=== PATIENT | female | born 1970 | race Caucasian/White ===

== ENCOUNTER 2016-12-31 08:56 | Emergency (ER) | payer OTHER ==
[~2016-12-31] VITALS: Ht 167.6 cm; Wt 72.0 kg
[~2016-12-31 08:56] MED LIST: ARMO60TA PO; EPIP0.3I IM; FLUO40CA PO; FLUT50SP EACH NARE; LORA-392 PO; OMEP40CA2 PO
[2016-12-31 09:10] VITALS: BP 144/90; PULSE 83; RESP 16; TEMP 97.8; O2SAT 99
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
[2016-12-31] MEDS ORDERED: ACETAMINOPHEN 325 MG TAB PO ONE (09:45)
[2016-12-31 10:06] LABS: POTASSIUM 4.2 MEQ/L (3.5-5.1)
[2016-12-31 10:10] LABS: BICARBONATE 25.9 MEQ/L (21.0-32.0)
[2016-12-31 10:15] VITALS: BP 119/75; PULSE 74; RESP 16; O2SAT 100
--- NOTE | 2016-12-31 10:40 | RADRPT ---
EXAM DATE/TIME: 12/31/2016 10:10 [place] COMPARISON: No previous studies available for comparison. INDICATIONS : Headache. Right visual disturbance. RADIATION DOSE: 59.84 CTDIvol (mGy) MEDICAL HISTORY : None SURGICAL HISTORY : Thyroidectomy. ENCOUNTER: Initial ACUITY: 1 day PAIN SCALE: 3/10 LOCATION: cranial TECHNIQUE: Multiple contiguous axial images were obtained of the head. Using automated exposure control and adj ustment of the mA and/or kV according to patient size, radiation dose was kept as low as reasonably a chievable to obtain optimal diagnostic quality images. DICOM format image data is available electro nically for review and comparison. FINDINGS: CEREBRUM: The ventricles are normal. No evidence of midline shift, mass lesion, hemorrhage or acute infarction . No extra-axial fluid collections are seen. POSTERIOR FOSSA: The cerebellum and brainstem demonstrate no abnormality. The 4th ventricle is midline. The cerebell opontine angle is unremarkable. EXTRACRANIAL: Visualized sinuses are clear. SKULL: The calvaria is intact. No evidence of skull fracture. CONCLUSION: Negative noncontrast head CT. No acute finding is identified. Carlito Cervantes MD on December 31, 2016 at 10:36 Board Certified Radiologist. This report was verified electronically.
[2016-12-31 11:05] LABS: AUTOMATED NEUTROPHIL # 2.2 TH/MM3 (1.8-7.7); BASOPHIL % 0.8 % (0.0-2.0); EOSINOPHIL # 0.1 TH/MM3 (0-0.4); EOSINOPHIL % 3.2 % (0.0-4.0); HEMATOCRIT 39.1 % (35.0-46.0); HEMO FLAGS DIFF FINAL; LYMPH % 38.3 % (9.0-44.0); LYMPHOCYTE # 1.7 TH/MM3 (1.0-4.8); MEAN CELL VOLUME 92.3 FL (80.0-100.0); MEAN CORPUSCULAR HEMOGLOBIN 31.9 PG (27.0-34.0); MEAN CORPUSCULAR HGB CONC 34.5 % (32.0-36.0); MONO % 5.8 % (0.0-8.0); NEUT % 51.9 % (16.0-70.0); PLATELET COUNT 240 TH/MM3 (150-450); RED BLOOD COUNT 4.24 MIL/MM3 (4.00-5.30); RED CELL DISTRIBUTION WIDTH 12.5 % (11.6-17.2); WHITE BLOOD COUNT 4.3 TH/MM3 (4.0-11.0)
[2016-12-31 11:11] VITALS: RESP 16
[2016-12-31 12:00] VITALS: BP 98/72
== END 2016-12-31 12:16 | disposition home or self-care (01) ==
LOC: PHED 08:56
DX: H93.8X3 Other specified disorders of ear, bilateral (principal); H53.8 Other visual disturbances; E05.00 Thyrotoxicosis with diffuse goiter without thyrotoxic crisis or storm
CPT/HCPCS: 70450; 80048; 84436; 84443; 84703; 85025; 99285

== ENCOUNTER → 2017-02-21 | Outpatient (CLI) | payer OTHER ==
[~2017-02-21] VITALS: Ht 167.6 cm; Wt 72.5 kg
[~2017-02-21] MED LIST changes: +CHLORHEXIDINE GLUCONATE 2 % 1 PACK (2 CLOTHS) TOPICAL PRN; +DEXAMETHASONE SOD PHOS 4 MG/ML VIAL IV ONE; +EPIN1INJ17 IM; -EPIP0.3I IM; +INSULIN HUMAN REGULAR 1,000 UNITS/10 ML VIAL SQ PRN; +LACTATED RINGER'S 1000 ML IV PRN; +METOPROLOL TARTRATE 25 MG TAB PO PRN; -OMEP40CA2 PO; +ONDANSETRON HCL 4 MG/2 ML VIAL IV PUSH ONE; +POVIDONE IODINE 5% (ANTISEPSIS KIT) 4 APPLICATIONS EACH NARE PRN; +PROPOFOL 200 MG/20 ML AMP IV ONE; +SODIUM CHLORID 0.9% 500 ML IV PRN
--- NOTE | 2017-02-21 09:06 | GIPROC ---
[facility] [address] [facility]. [facility], [address] EGD PROCEDURE REPORT EXAM DATE: 02/21/2017 PATIENT NAME: Cindy Leone MR #: [id number] BIRTHDATE: 1970 ATTENDING: Tyron Perez MD ORDER #: [id number] CELL BIOLOGY SCIENTIST: Leonard Adams and Viktor Hutton STATUS: outpatient INDICATIONS: The patient is a 47 yr old female here for an EGD due to epigastric pain/tenderness, early satiety-no better with a trial of a gastroparesis diet-and diarrhea. PROCEDURE PERFORMED: EGD w/ biopsy MEDICATIONS: Per Anesthesia. TOPICAL ANESTHETIC: none CONSENT: The patient understands the risks and benefits of the procedure and understands that these risks include, but are not limited to: sedation, allergic reaction, infection, perforation and/or bleeding. Alternative means of evaluation and treatment include, among others: physical exam, x-rays, and/or surgical intervention. The patient elects to proceed with this endoscopic procedure. medical equipment was checked for proper function. Hand hygiene and appropriate measures for infection prevention was taken. After the risks, benefits and alternatives of the procedure were thoroughly explained, Informed consent was verified, confirmed and timeout was successfully executed by the treatment team. The patient was anesthetized with topical anesthesia and the Pentax [id number] endoscope was introduced through the mouth and advanced to the second portion of the duodenum. Retroflexed views revealed no abnormalities The gastroscope was then slowly withdrawn and removed. ESOPHAGUS: The mucosa of the esophagus appeared normal. STOMACH: The mucosa of the stomach appeared normal. DUODENUM: The duodenal mucosa appeared normal in the entire duodenum. Cold forceps biopsies were taken in the bulb and second portion. ADVERSE EVENTS: There were no complications. IMPRESSIONS: 1. The esophagus appeared normal 2. The mucosa of the stomach appeared normal 3. Normal duodenal mucosa in the entire duodenum 4. Retroflexed views revealed no abnormalities RECOMMENDATIONS: Await biopsy results. Biopsy results will not be ready for 7-10 days. If you don't hear from us in two weeks, call our office for biopsy results. PATIENT CONDITION: stable DISPOSITION: Home REPEAT EXAM: Tyron Moulis MD eSigned: Tyron Perez MD 02/21/2017 9:06 AM cc: [facility] PATIENT NAME: Cindy Leone MR#: [id number]
--- NOTE | 2017-02-21 09:13 | GIPROC ---
[facility] [address] [facility]. [facility], [address] COLONOSCOPY PROCEDURE REPORT EXAM DATE: 02/21/2017 PATIENT NAME: Cindy Leone MR #: [id number] BIRTHDATE: 1970 ENDOSCOPIST: Tyron Perez MD ORDER #: [id number] CHIN STRAP CUTTER: Leonard Adams and Viktor Hutton STATUS: outpatient INDICATIONS: The patient is a 47 yr old female here for a colonoscopy due to Diarrhea; family history of colon cancer (her father.) PROCEDURE PERFORMED: Colonoscopy with biopsy MEDICATIONS: Per Anesthesia. PREP QUALITY: good ESTIMATED BLOOD LOSS: None CONSENT: The patient understands the risks and benefits of the procedure and understands that these risks include, but are not limited to: sedation, allergic reaction, infection, perforation and/or bleeding. Alternative means of evaluation and treatment include, among others: physical exam, x-rays, and/or surgical intervention. The patient elects to proceed with this endoscopic procedure. medical equipment was checked for proper function. Hand hygiene and appropriate measures for infection prevention was taken. After the risks, benefits and alternatives of the procedure were thoroughly explained, Informed consent was verified, confirmed and timeout was successfully executed by the treatment team. A digital exam revealed no abnormalities of the rectum. A small thrombosed external hemorrhoid was noted posteriorly. The Pentax [id number] endoscope was introduced through the anus and advanced to the cecum, which was identified by both the appendix and ileocecal valve; the terminal ileum appeared yovanny. The instrument was then slowly withdrawn as the colon was fully examined. COLON FINDINGS: The colonic mucosa appeared normal in the terminal ileum. Multiple biopsies were performed using cold forceps. Retroflexed views revealed no abnormalities The scope was then completely withdrawn from the patient and the procedure terminated. PROCEDURE WITHDRAWAL TIME:8minutes ADVERSE EVENTS: There were no complications. IMPRESSIONS: 1. The colonic mucosa appeared normal in the terminal ileum; multiple biopsies were performed using cold forceps 2. Retroflexed views revealed no abnormalities 3. Revealed no abnormalities of the rectum RECOMMENDATIONS: Await biopsy results. Biopsy results will not be ready for 7-10 days. If you don't hear from us in two weeks, call our office for results. RECALL: Return 5 years Colonoscopy Tyron Perez MD eSigned: Tyron Perez MD 02/21/2017 9:12 AM cc: [facility]
[2017-02-21 09:50] VITALS: BP 119/83; PULSE 70; RESP 16; O2SAT 99
== END ==
LOC: HEND 06:28
DX: R10.13 Epigastric pain (principal); R19.7 Diarrhea, unspecified; Z80.0 Family history of malignant neoplasm of digestive organs
CPT/HCPCS: 00810; 43239; 45380; 88305; J1100; J2405; J7120